=== PATIENT | male | born 1960 | race Caucasian/White ===

== ENCOUNTER 2022-12-24 17:10 | Emergency (ER) | payer MEDICAID, OTHER ==
[~2022-12-24] VITALS: Ht 167.6 cm; Wt 95.0 kg
[2022-12-24 17:15] VITALS: O2SAT 97
[2022-12-24 19:12] LABS: HEMOGLOBIN. 14.4 g/dL (14.0-18.0); MEAN CORPUSCULAR HEMOGLOBIN 30.4 pg (28.0-32.0); MEAN CORPUSCULAR VOLUME 88.8 fL (80.0-94.0); MEAN PLATELET VOLUME 7.1 fl (7.4-10.4); PLATELET 252 x1000/uL (130-400); RED BLOOD CELL COUNT 4.73 mill/uL (4.7-6.1); RED CELL DISTRIBUTION WIDTH 14.1 % (11.6-14.6)
[2022-12-24 19:18] LABS: CHLORIDE 91 mEq/L (98-107)
[2022-12-24 19:20] LABS: INR 0.9; PROTHROMBIN TIME 10.2 sec (9.6-11.0)
[2022-12-24 19:41] LABS: PLATELET ESTIMATE NORMAL
[2022-12-24 19:50] LABS: ETHANOL BLOOD 252 mg/dL (-10)
[2022-12-24 19:51] LABS: CREATINE KINASE 7509 IU/L (39-308)
[2022-12-24] MEDS: SODIUM CHLORIDE 0.9% 1,000 ML IV ONE (20:00)
[2022-12-24 20:58] LABS: BG BASE EXCESS -4.4 mmol/L (-2.0-2.0); BG CARBOXYHEMOGLOBIN 2.9 % (0.5-1.5); BG DEOXYHEMOGLOBIN 5.4 % (0.0-5.0); BG FRACTION INSPIRED OXYGEN 21; BG HCO3 ACT 19.5 mmol/L (22.0-26.0); BG METHEMOGLOBIN 0.1 % (0.0-1.5); BG OXYGEN SATURATION 94.4 % (92.0-98.5); BG OXYHEMOGLOBIN 91.6 % (94.0-97.0); BG PCO2 32.9 mmHg (35.0-45.0); BG PO2 73.9 mmHg (75.0-100.0); BG SAMPLE SITE RIGHT RADIAL; BG TOTAL HEMOGLOBIN 15.5 g/dL (12.0-18.0); BG VENT MODE ROOM AIR
[2022-12-24] MEDS ORDERED: IOHEXOL-350 100 ML BOTTLE ONE (21:02)
[2022-12-24 21:25] LABS: CLARITY URINE CLEAR (CLEAR); COLOR URINE YELLOW (YELLOW); KETONES URINE NEGATIVE (NEGATIVE); LEUKOCYTE ESTERASE URINE NEGATIVE (NEGATIVE); NITRITE URINE NEGATIVE (NEGATIVE); OCCULT BLOOD URINE 3+ (NEGATIVE); PH URINE 5.5 (4.5-8.0); PROTEIN URINE 2+ (NEGATIVE); SPECIFIC GRAVITY URINE 1.017 (1.005-1.030); UROBILINOGEN URINE 0.2 E.U./dL (0.2-1.0)
[2022-12-24 21:44] LABS: *AMPHETAMINES SCREEN URINE NEGATIVE (NEGATIVE); *BARBITURATES SCREEN URINE NEGATIVE (NEGATIVE); *BENZODIAZEPINES SCREEN URINE NEGATIVE (NEGATIVE); *COCAINE SCREEN URINE NEGATIVE (NEGATIVE); CANNABINOID URINE SCREEN NEGATIVE (NEGATIVE); METHADONE URINE SCREEN NEGATIVE (NEGATIVE); OPIATES URINE SCREEN NEGATIVE (NEGATIVE); PHENCYCLIDINE URINE SCREEN NEGATIVE (NEGATIVE)
[2022-12-24] MEDS ORDERED: SODIUM CHLORIDE 0.9% 1,000 ML IV ONE (22:15)
[2022-12-24 23:54] VITALS: BP 124/82; PULSE 78; RESP 25; TEMP 98.6
== END 2022-12-25 00:19 | disposition short-term general hospital (02) ==
LOC: ER 17:10
DX: M62.82 Rhabdomyolysis (principal); R42 Dizziness and giddiness; F10.129 Alcohol abuse with intoxication, unspecified; I48.91 Unspecified atrial fibrillation; I10 Essential (primary) hypertension; Z20.822 Contact with and (suspected) exposure to COVID-19; Y90.8 Blood alcohol level of 240 mg/100 ml or more
CPT/HCPCS: 80053; 80305; 81003; 80307; 80329; 80320; 82550; 83880; 83605; 83690; 85025; 85610; 84484; 36415; 71045; 73562; 70496; 70498; 70450; 74176; 82805; 82375; 96360; 99285; 87426; 36600; Q9967; J7030; C9803; G0480